=== PATIENT | female | born 1995 | race Caucasian/White ===

== ENCOUNTER 2023-02-14 15:47 | Emergency (ER) | payer SELFPAY ==
[2023-02-14] MEDS ORDERED: Ondansetron 4 MG Tab.DIS PO STA ×2 (17:07→19:30)
[2023-02-14] MEDS ORDERED: Sodium Chloride 0.9% 2.5 ML Syringe FLUSH PRN (17:52)
[2023-02-14] MEDS ORDERED: LORazepam 2 MG/ML SDV IVPUSH STA (17:52)
[2023-02-14] MEDS ORDERED: Sodium Chloride 0.9% 10 ML Syringe FLUSH PRN (17:52)
[2023-02-14] MEDS ORDERED: Sodium Chloride 0.9% 1,000 ML IV STA (17:52)
[2023-02-14 18:39] LABS: CARBON DIOXIDE,CO2 17.6 mmol/L (21.0-32.0); POTASSIUM,K 3.3 mmol/L (3.5-5.1)
== END 2023-02-14 19:47 | disposition home or self-care (01) ==
LOC: MW.ED 15:47
DX: K52.9 Noninfective gastroenteritis and colitis, unspecified (principal); F17.210 Nicotine dependence, cigarettes, uncomplicated
CPT/HCPCS: 36415; 80053; 81001; 81025; 83690; 85025; 96361; 96374; 99284; A9270; J2060; J3490; J7030; 99283

== ENCOUNTER 2023-07-25 17:54 | Emergency (ER) | payer SELFPAY ==
[2023-07-25] MEDS ORDERED: Sodium Chloride 0.9% 2.5 ML Syringe FLUSH PRN (17:59)
[2023-07-25] MEDS ORDERED: Sodium Chloride 0.9% 10 ML Syringe FLUSH PRN (17:59)
[2023-07-25 18:20] LABS: BASOPHILS PERCENT AUTO 0.3 % (0.0-1.5); EOSINOPHILS PERCENT AUTO 0.4 % (0.0-7.0); HEMATOCRIT 34.5 % (36.0-46.0); LYMPHOCYTES ABSOLUTE AUTO 1.9 K/uL (0.6-2.4); LYMPHOCYTES PERCENT AUTO 26.6 % (16.0-40.0); MEAN CORPUSCULAR HEMOGLOBIN 31.4 pg (27.0-32.0); MEAN CORPUSCULAR HGB CONC 34.8 g/dL (31.0-37.0); MEAN CORPUSCULAR VOLUME 90.3 fL (80.0-98.0); MONOCYTES ABSOLUTE AUTO 0.4 K/uL (0.0-0.8); MONOCYTES PERCENT AUTO 5.6 % (0.0-15.0); NEUTROPHILS ABSOLUTE AUTO 4.9 K/uL (1.4-5.7); NEUTROPHILS PERCENT AUTO 67.1 % (48.0-80.0); PLATELET COUNT,PLT 264 K/uL (150-400); RED BLOOD CELL COUNT 3.82 M/uL (4.30-5.90); WHITE BLOOD CELL COUNT,WBC 7.28 K/uL (4.0-11.0)
[2023-07-25 18:52] LABS: A/G RATIO 1.1 (0.9-1.6); ALBUMIN 3.9 g/dL (3.4-5.0); BILIRUBIN TOTAL 0.3 mg/dL (0.2-1.0); CALCIUM 8.8 mg/dL (8.5-10.1); CREATININE 0.8 mg/dL (0.6-1.0); EST CRCL DRUG DOSING (CG) 91.57 mL/min; POTASSIUM,K 3.9 mmol/L (3.5-5.1); PROTEIN TOTAL,TP 7.5 g/dL (6.4-8.2)
== END 2023-07-25 20:05 | disposition left against medical advice (07) ==
LOC: MW.ED 17:54
DX: Z53.21 Procedure and treatment not carried out due to patient leaving prior to being seen by health care provider (principal)
CPT/HCPCS: 36415; 76817; 76817-26; 80053; 83690; 84702; 85025; 86900; 86901

== ENCOUNTER 2024-02-18 13:41 | Inpatient (IN) | payer OTHER ==
[2024-02-18] MEDS: Lactated Ringers 1,000 ML IV SCH (13:45)
[2024-02-18] MEDS ORDERED: Phenylephrine HCl 0.5 MG/5 ML AMP ONE (14:00)
[2024-02-18] MEDS ORDERED: Bupivacaine 0.5% 10 ML SDV ONE (14:00)
[2024-02-18] MEDS ORDERED: Carboprost Tromethamine 250 MCG/1 mL Vial IM PRN (14:13)
[2024-02-18] MEDS ORDERED: Methylergonovine 0.2 MG/1 ML Amp IM PRN ×2 (14:13→15:04)
[2024-02-18] MEDS ORDERED: Sodium Chloride 0.9% 2.5 ML Syringe FLUSH PRN (14:13)
[2024-02-18] MEDS ORDERED: Tranexamic Acid IN NACL,ISO-OS 1,000 MG in Premix Bag 1 BAG IV PRN ×2 (14:13→15:04)
[2024-02-18] MEDS ORDERED: Water For Irrigation,Sterile 1,000 ML Container IRR PRN (14:13)
[2024-02-18] MEDS ORDERED: Sodium Chloride 0.9% 20 ML SDV IV PRN (14:13)
[2024-02-18] MEDS ORDERED: Sodium Chloride 0.9% 10 ML Syringe FLUSH PRN (14:13)
[2024-02-18] MEDS ORDERED: Misoprostol 200 MCG Tab PO PRN (14:13)
[2024-02-18] MEDS ORDERED: Lidocaine 1% 50 ML MDV INJECT PRN (14:13)
[2024-02-18 14:23] LABS: HEMATOCRIT 31.7 % (37.0-47.0); MEAN CORPUSCULAR HEMOGLOBIN 29.4 pg (28.0-32.0); MEAN CORPUSCULAR HGB CONC 34.7 g/dL (32.0-36.0); MEAN CORPUSCULAR VOLUME 84.8 fL (83.0-99.0); MEAN PLATELET VOLUME 11.2 fL (9.4-12.3); PLATELET COUNT,PLT 275 K/uL (150-400); RED BLOOD CELL COUNT 3.74 M/uL (4.10-5.30); WHITE BLOOD CELL COUNT,WBC 15.43 K/uL (3.9-11.3)
[2024-02-18] MEDS: Oxytocin/0.9 % Sodium Chloride 30 UNIT/500 ML BAG IV SCH (14:25)
[2024-02-18] MEDS ORDERED: Ropivacaine HCl/PF 400 MG in Premix Bag 1 BAG EPIDUR SCH (14:30)
[2024-02-18] MEDS ORDERED: ePHEDrine 50 MG/ML SDV IVPUSH PRN ×2 (14:30)
[2024-02-18] MEDS ORDERED: Phenylephrine HCl 0.5 MG/5 ML AMP IVPUSH PRN (14:30)
[2024-02-18] MEDS: Ropivacaine HCl/PF 200 ML ONE (14:42)
[2024-02-18] MEDS ORDERED: Lanolin 100% Cream 7 GM Tube TOP PRN (15:04)
[2024-02-18 15:35] LABS: PH,UMBILICAL ARTERIAL 7.384 (7.18-7.38); PH,UMBILICAL VENOUS 7.384 (7.25-7.45)
[2024-02-18] MEDS: Witch Hazel Medicated Pads 40/Jar TOP PRN (16:58)
[2024-02-18] MEDS: Acetaminophen 500 MG Tab PO PRN (16:59)
[2024-02-18] MEDS: Ibuprofen 800 MG Tab PO PRN (16:59)
[2024-02-18] MEDS: Benzocaine/Menthol 20%-0.5% Spray 78 GM Cannister TOP PRN (16:59)
[2024-02-19] MEDS: Docusate Sodium 100 MG Cap PO PRN (00:28)
[2024-02-19] MEDS: oxyCODONE 5 MG Tab PO PRN (03:40)
[2024-02-19 06:24] LABS: HEMATOCRIT 31.2 % (37.0-47.0); HEMOGLOBIN 10.5 g/dL (12.0-16.0)
[2024-02-19] MEDS: Ketorolac 30 MG/ML SDV IVPUSH ONE (07:03)
[2024-02-19] MEDS: Prenatal Multivitamin with Calcium/Folic Acid/Iron Tab PO SCH (08:27)
== END 2024-02-19 16:55 | disposition home or self-care (01) | DRG 807 ==
LOC: MW.OBCHECK 13:41 → MW.OB 13:43 → MW.OBCHECK 14:35 → OBSVTOIN 15:04 → MW.OB 18:47
PROVIDERS: ADMIT Obstetrics & Gynecology; ATTEND Obstetrics & Gynecology
PROC: 10E0XZZ Delivery of Products of Conception, External Approach (ICD-10-PCS; principal; 2024-02-18)
PROC: 3E033VJ Introduction of Other Hormone into Peripheral Vein, Percutaneous Approach (ICD-10-PCS; 2024-02-18)
DX: O98.32 Other infections with a predominantly sexual mode of transmission complicating childbirth (principal); Z37.0 Single live birth; B00.9 Herpesviral infection, unspecified; Z3A.39 39 weeks gestation of pregnancy; O69.81X0 Labor and delivery complicated by cord around neck, without compression, not applicable or unspecified
CPT/HCPCS: 36415; 82803; 85014; 85018; 85027; 86592; 86850; 86900; 86901; A9270-GY; J0665; J2371; J2590; J2795; J7120